=== PATIENT | female | born 1980 | race Caucasian/White ===

== ENCOUNTER 2017-04-30 08:30 | Emergency (ER) | payer MEDICARE ==
[~2017-04-30] VITALS: Ht 157.5 cm; Wt 76.2 kg
--- NOTE | ~2017-04-30 | CT4 ---
[facility] A Service of [facility] & [facility] RADIOLOGY TEXT RESULTS PATIENT: BARRY WHITTINGTON LOCATION: SED : [birth year] UNIT #: [id number] AGE: [address]: Yg Choi MD SEX: F ORDER DR: [id number] [address] [address] [id number] E MR#: [id number] Acc #: [id number] NAME: BARRY WHITTINGTON : 1980 SEX: F STUDY DATE/TIME: 04/30/2017 09:24 UNIT: SED ROOM: STUDY DESCRIPTION: CT Abd and Pelv Wo Cont Attending Physician: Yg Choi M.D. Ordering Physician: Yg Choi M.D. Primary Care Physician: Del Madrigal M.D. MEDICAL IMAGING REPORT This report is preliminary unless electronic signature is present. EXAM CT abdomen and pelvis without contrast, 04/30/2017 09:24 hours HISTORY 36-year-old woman with history of kidney stones, bladder surgery and renal reconstruction. Complaining of right flank pain, right lower quadrant pain since midnight last night. COMPARISON 08/27/2015 TECHNIQUE Helical noncontrasted images were obtained from the lung bases through the pubic symphysis without oral or intravenous contrast. Sagittal and coronal reconstructions were performed. Total exam DLP 1189 mGy-cm. This CT exam was performed with one or more of the following radiation dose reduction techniques: automatic exposure control, adjustment of mA and/or kV according to patient size, and iterative reconstruction. FINDINGS Images through the lung bases are clear. There are no effusions. Images through the abdomen demonstrate presence of gastric stimulator device with leads over the anterior proximal stomach. This is unchanged. There are clips consistent with prior cholecystectomy. The liver, spleen, pancreas and bile ducts are normal. The adrenal glands are normal. Images through the mid abdomen including the kidneys are degraded by respiratory motion artifact. The left kidney demonstrates a stone or punctate stones in the lower pole felt similar to 08/27/2015. The right kidney demonstrates no definite intrarenal stones. There is no definite right renal dilatation or ureteral dilatation. There is no STS. [facility] A Service of [facility] & [facility] RADIOLOGY TEXT RESULTS PATIENT: BARRY WHITTINGTON LOCATION: SED : [birth year] UNIT #: [id number] AGE: [address]: Yg Choi MD SEX: F ORDER DR: ureteral calculus seen. The bladder appears normal. The stomach and small bowel are remarkable only for the presence of a gastric stimulator device. The appendix is normal. Previous dense material within the appendix is no longer present. The colon is decompressed and not thick-walled. CT pelvis demonstrates hysterectomy change. There is no adnexal mass or free fluid. Bone window images demonstrate no compression fracture or significant disc height loss. Sacrum and sacroiliac joints appear normal. IMPRESSION No acute findings in the abdomen or pelvis. The images through the mid abdomen are slightly degraded by respiratory motion. There is a 2.0-3.0 mm nonobstructing stone in the lower pole left kidney unchanged from 08/13. There is no evidence of ureterectasis, ureteral calculus. The appendix is normal. The gallbladder is surgically absent. Dictated by... Michelle Rojas M.D. THIS IS AN ELECTRONICALLY VERIFIED REPORT Michelle Rojas M.D. at 04/30/2017 2:34 PM Miranda TD: 04/30/2017 10:51 JOB #: [id number] MEDICAL IMAGING REPORT Page 1 of 1
[~2017-04-30 08:30] MED LIST: ALBUTEROL17 GM INH; ALPRAZOLAM; ALPRAZOLAM0.5 MG PO; AMITRIPTYLINE H75 MG PO; AMITRYPTYLINE; AMITRYPTYLINE PO; AMOXICILLIN PO; ATARAX; ATIVAN PO; ATIVAN0.5 MG PO; AUGMENTIN PO; BACTRIM DS TABL1 TA1 PO; BENADRYL25 MG PO; BENTYL20 M1 PO; BENTYL20 MG PO; BUSPAR PO; BUSPAR30 MG PO; BUTRANS1 EAC1 TD; CIPRO; CIPRO PO; CODEINE; COLACE PO; COMBIVENT INH14.7 GM INH; DESYREL100 MG PO; DIAZEPAM; DIAZEPAM PO; DICYCLOMINE HCL20 MG PO; DILAUDID2 MG; DOXYCYCLINE150 MG PO; EPIPEN0.3 MG/0.1; FAMOTIDINE PO; FLEXERIL PO; FLEXERIL10 MG PO; FLOMAX0.4 MG PO; HYDROCODON-ACE1 EAC5 PO; IMITREX50 MG PO; KEPPRA250 MG PO; KEPPRA500 M2; KEPPRA500 M2 PO; KEPPRA500 MG PO; LEXAPRO PO; LORCET 10/1 TAB 10/6 PO; LORCET 10/650 T1 TAB PO; LORTAB 10-5001 EACH; LORTAB 10-5001 EACH PO; LORTAB 101 TAB 10/5 PO; LORTAB 5/500 TA1 TA2 PO; LORTAB 7.5-5001 TAB PO; LORTAB 7.51 TAB 7.5/ PO; MACROBID 100 M100 MG PO; MACROBID100 MG PO; MEDROL DOSEPAK4 MG PO; MIRALAX17 G1 PO; MIRALAX17 GM DOB; MIRALAX17 GM PO; NAPROSYN500 MG PO; NEURONTIN; OXYCONTIN30 MG PO; PERCOCET 10/3251 TAB PO; PERCOCET5/325 PO; PHENERGAN; PHENERGAN PO; PHENERGAN PR; PHENERGAN SUPP25 MG PR; PHENERGAN25 M1 DOB; PHENERGAN25 M1 PO; PHENERGAN25 M1 PR; PHENERGAN25 MG PO; PREDNISONE10 MG PO; PREVACID SOLUTA30 M1 PO; PRILOSEC PO; PROMETHAZINE HC25 MG PO; PROZAC; PROZAC PO; PROZAC40 MG PO; PYRIDIUM PO; PYRIDIUM100 MG PO; SENNA8.6 M2 PO; SEROQUEL PO; SULFA PO; TEGRETOL PO; TEGRETOL XR200 M1 PO; TRAZODONE HCL100 MG PO; ULTRAM PO; VISTARIL PO; VISTARIL50 MG PO; VITAMIN B-121000 MCG PO; VOLTAREN25 MG DOB; XANAX XR1 MG PO; XANAX1 MG PO; ZANAFLEX; ZANAFLEX PO; ZANAFLEX4 M1 PO; ZOFRAN ODT4 MG PO; ZOFRAN ODT4 MG/UDTAB PO; ZOFRAN PO
[2017-04-30] MEDS ORDERED: ELIQUIS2.5 MG (08:42)
[2017-04-30] MEDS ORDERED: CARAFATE (08:43)
[2017-04-30] MEDS ORDERED: PROTONIX (08:43)
[2017-04-30 09:17] LABS: BASOPHIL% 0.5 % (0-2.5); DIFF IND NO; EOSINOPHIL% 0.2 % (0.0-7.0); HEMATOCRIT 33.8 % (35.0-45.0); HEMOGLOBIN 11.9 gm/dL (12.0-16.0); LYMPHOCYTE# 0.7 X10e3 (1.0-3.5); LYMPHOCYTE% 10.6 % (17.0-45.0); MEAN CELL VOLUME 96.4 FL (83-96); MEAN CORPUSCULAR HGB CONC 35.2 g/dL (30-36); MEAN PLATELET VOLUME 7.6 FL (6.5-11.5); MONOCYTE# 0.3 X10e3 (0-1.0); MONOCYTE% 4.6 % (3.0-12.0); NEUTROPHIL# 5.3 X10e3 (1.5-7.1); NEUTROPHIL% 84.1 % (40-75); PLATELET COUNT 199 X10e3 (140-420); RED CELL DISTRIBUTION WIDTH 15.3 % (11.0-15.5); WHITE BLOOD COUNT 6.3 X10e3 (4.0-10.5)
[2017-04-30 09:35] LABS: BILIRUBIN, DIRECT 0.1 mg/dL (0.0-0.2); BILIRUBIN,INDIRECT 0.6 mg/dL (0.0-0.9); BILIRUBIN,TOTAL 0.7 mg/dL (0.2-2.0); BUN/CREATININE RATIO 15.71; CALCIUM SERUM 8.2 mg/dL (8.4-10.2); CREATININE SERUM 0.7 mg/dL (0.6-1.4); GLOM FILT RATE Estimated 109.9 mL/min (>60); POTASSIUM 3.6 mmol/L (3.5-5.1); PROTEIN TOTAL SERUM 7.4 g/dL (6.0-8.3)
[2017-04-30 09:49] LABS: URINE APPEARANCE SL CLOUDY; URINE BILIRUBIN NEG (NEG); URINE BLOOD 3+ (NEG); URINE COLOR ORANGE; URINE GLUCOSE NEG (NORM); URINE KETONE NEG (NEG); URINE LEUKOCYTE ESTERASE NEG (NEG); URINE NITRATE NEG (NEG); URINE PROTEIN TRACE (NEG); URINE SPECIFIC GRAVITY 1.025 (1.003-1.035); URINE UROBILINOGEN 0.2 MG/DL (NORM)
[2017-04-30 09:50] LABS: MICRO INDICATED? YES; URINE SOURCE CLEAN CATCH
[2017-04-30 09:57] LABS: CULTURE INDICATED? NO; URINE BACTERIA NEG (NEG); URINE RBC 200-300 /[HPF] (0-2); URINE WBC 0-2 /[HPF] (0-5)
[2017-04-30 10:01] LABS: AMPHETAMINE NEG (NEG); BARBITURATES NEG (NEG); BENZODIAZEPINES POS (NEG); COCAINE NEG (NEG); MARIJUANA NEG (NEG); OPIATES NEG (NEG); TRICYCLIC ANTIDEPRESSANTS NEG (NEG); U METHADONE NEG (NEG)
== END 2017-04-30 10:20 | disposition home or self-care (01) ==
LOC: SED 08:30
PROVIDERS: Emergency Medicine
DX: R31.9 Hematuria, unspecified (principal); R10.9 Unspecified abdominal pain; R11.0 Nausea; Z86.718 Personal history of other venous thrombosis and embolism; Z87.442 Personal history of urinary calculi; Z90.710 Acquired absence of both cervix and uterus; Z88.5 Allergy status to narcotic agent; Z88.6 Allergy status to analgesic agent; Z88.8 Allergy status to other drugs, medicaments and biological substances; Z91.040 Latex allergy status; Z88.1 Allergy status to other antibiotic agents; Z79.899 Other long term (current) drug therapy
CPT/HCPCS: 36415; 74176; 80048; 80076; 80307; 81003; 83690; 85025; 96360; 99284

== ENCOUNTER 2017-05-01 00:51 | Emergency (ER) | payer MEDICARE ==
[~2017-05-01] VITALS: Ht 170.2 cm; Wt 68.0 kg
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
[~2017-05-01 00:51] MED LIST changes: +CARAFATE; +ELIQUIS2.5 MG; +PROTONIX
[2017-05-01 03:17] LABS: BASOPHIL% 0.3 % (0-2.5); EOSINOPHIL% 0.1 % (0.0-7.0); HEMATOCRIT 32.2 % (35.0-45.0); HEMOGLOBIN 11.1 gm/dL (12.0-16.0); LYMPHOCYTE# 0.8 X10e3 (1.0-3.5); LYMPHOCYTE% 12.4 % (17.0-45.0); MEAN CELL VOLUME 96.2 FL (83-96); MEAN CORPUSCULAR HEMOGLOBIN 33.2 PG (28-34); MEAN CORPUSCULAR HGB CONC 34.5 g/dL (30-36); MEAN PLATELET VOLUME 7.4 FL (6.5-11.5); MONOCYTE# 0.4 X10e3 (0-1.0); MONOCYTE% 6.6 % (3.0-12.0); NEUTROPHIL# 5.4 X10e3 (1.5-7.1); NEUTROPHIL% 80.6 % (40-75); PLATELET COUNT 192 X10e3 (140-420); RED BLOOD COUNT 3.34 X10e (3.90-5.30); RED CELL DISTRIBUTION WIDTH 15.4 % (11.0-15.5); WHITE BLOOD COUNT 6.7 X10e3 (4.0-10.5)
[2017-05-01 03:18] LABS: DIFF IND NO
[2017-05-01 03:36] LABS: INR 1.1; PARTIAL THROMBOPLASTIN TIME 22.3 SECONDS (23.5-31.3); PROTHROMBIN TIME (PATIENT) 11.4 SECONDS (10.0-11.7)
[2017-05-01 03:52] LABS: BILIRUBIN, DIRECT 0.1 mg/dL (0.0-0.2); BILIRUBIN,INDIRECT 0.4 mg/dL (0.0-0.9); BILIRUBIN,TOTAL 0.5 mg/dL (0.2-2.0); BUN/CREATININE RATIO 12.5; CALCIUM SERUM 8.5 mg/dL (8.4-10.2); CREATININE SERUM 0.8 mg/dL (0.6-1.4); GLOM FILT RATE Estimated 93.6 mL/min (>60); PROTEIN TOTAL SERUM 7.3 g/dL (6.0-8.3)
[2017-05-01 04:02] LABS: POTASSIUM 2.9 mmol/L (3.5-5.1)
== END 2017-05-01 07:00 | disposition home or self-care (01) ==
LOC: CED 00:51
PROVIDERS: Emergency Medicine
DX: S05.42XA Penetrating wound of orbit with or without foreign body, left eye, initial encounter (principal); Z88.1 Allergy status to other antibiotic agents; Z91.040 Latex allergy status; Z88.8 Allergy status to other drugs, medicaments and biological substances; Z79.899 Other long term (current) drug therapy; W22.8XXA Striking against or struck by other objects, initial encounter; Y09 Assault by unspecified means
CPT/HCPCS: 12011; 36415; 70450; 70486; 71101; 72125; 74177; 80048; 80076; 83690; 85025; 85610; 85730; 96374; 96375; 99284; J1170; J1200; J1642; Q9967